=== PATIENT | female | born 1960 | race Hispanic/Latino ===

== ENCOUNTER 2017-05-27 15:14 | Emergency (ER) | payer SELFPAY ==
[~2017-05-27] VITALS: Ht 185.4 cm; Wt 88.5 kg
[2017-05-27] MEDS ORDERED: OXYCODONE HCL5 M1 PO (15:34)
[2017-05-27] MEDS ORDERED: DEXAMETHASONE4 MG PO (15:34)
[2017-05-27] MEDS ORDERED: LEXAPRO5 MG PO (15:35)
[2017-05-27] MEDS ORDERED: LEVOXYL50 MCG PO (15:35)
[2017-05-27] MEDS ORDERED: ATIVAN1 MG PO (15:35)
== END 2017-05-27 17:28 | disposition home or self-care (01) ==
LOC: ED 15:14
DX: R50.9 Fever, unspecified (principal); D89.9 Disorder involving the immune mechanism, unspecified; C90.00 Multiple myeloma not having achieved remission; Z79.899 Other long term (current) drug therapy
CPT/HCPCS: 71020; 80053; 81001; 83605; 85025; 96360; 99283; J7030